=== PATIENT | female | born 1970 | race Caucasian/White ===

== ENCOUNTER 2016-06-30 07:23 | Inpatient (IN) | payer OTHER ==
[2016-06-07 15:17] VITALS: BMI 41.0
--- NOTE | 2016-06-07 15:52 | PAT Medication Instructions ---
Service Date Jun 07, 2016. Current Home Medication List Gabapentin (Gabapentin), 600 MG PO TID Medroxyprogesterone Acetate (Depo-Provera), 1 DOSE INJ [id number] Simvastatin (Zocor), 20 MG PO NOON Tramadol (Ultram), 50 MG PO Q4-6H Triamterene/Hctz (Dyazide 37.5MG/25MG), 1 TAB PO NOON Venlafaxine Hcl (Effexor), 75 MG PO NOON Medication Instructions For Your Scheduled Surgery - Hold the following medications the morning of surgery: Triamterene/Hctz (Dyazide 37.5MG/25MG), 1 TAB PO NOON - Take the following medications the morning of surgery with a sip of water OTHERWISE NOTHING TO EAT OR DRINK AFTER MIDNIGHT: Gabapentin (Gabapentin), 600 MG PO TID Simvastatin (Zocor), 20 MG PO NOON (time permitting) Venlafaxine Hcl (Effexor), 75 MG PO NOON (time permitting) Tramadol (Ultram), 50 MG PO Q4-6H (may take up to 4 hours prior to surgery if needed) - Take the following medications as scheduled the night before surgery: Gabapentin (Gabapentin), 600 MG PO TID Tramadol (Ultram), 50 MG PO Q4-6H If you have any questions please call us at [phone] (Anastasia Aranda PA-C ) or [phone] or [phone]
[2016-06-07 16:22] LABS: BASO % 0.4 %; BASO ABS # 0.03 K/uL (0-0.2); COMPLETE YES; EOS % 2.1 %; HEMATOCRIT 41.2 % (37-47); IG% 0.1 %; LYMPH % 36.5 %; LYMPH ABS # 2.99 K/uL (1.2-3.4); MEAN CELL VOLUME 84.4 fL (80-100); MEAN CORPUSCULAR HEMOGLOBIN 29.1 pg (25-34); MEAN CORPUSCULAR HGB CONC 34.5 g/dl (32-36); MEAN PLATELET VOLUME 9.3 fL (7.4-10.4); MONO % 10.1 %; NEUT % 50.8 %; PLATELET COUNT 261 K/uL (130-400); RED BLOOD COUNT 4.88 M/uL (4.2-5.4)
[2016-06-07 16:25] LABS: URINE APPEARANCE CLEAR (CLEAR); URINE BILIRUBIN NEG (NEG); URINE COLOR YELLOW; URINE NITRITE NEG (NEG); URINE SPECIFIC GRAVITY 1.008 (1.000-1.030); UROBILINOGEN NEG (NEG)
[2016-06-07 16:30] LABS: MANUAL MICROSCOPIC REQUIRED? NO; REVIEW REQ? NO
--- NOTE | 2016-06-07 16:39 | DIAGNOSTIC IMAGING REPORT ---
CHEST PREADMISSION(PA/LAT) CLINICAL HISTORY: PAT preoperative evaluation COMPARISON STUDY: No previous studies for comparison. FINDINGS: The bones soft tissues and hemidiaphragms are normal. The cardiomediastinal silhouette is normal. The lungs are clear. The pulmonary vasculature is normal. IMPRESSION: Negative chest. Electronically signed by: Raffi Montero M.D. 06/07/2016 4:38 PM
[2016-06-07 16:54] LABS: BUN/CREATININE RATIO 22.8 (10-20); CALCIUM 8.9 mg/dl (8.5-10.1); CREATININE 0.84 mg/dl (0.60-1.20); POTASSIUM 3.6 mmol/L (3.5-5.1)
[2016-06-30] VITALS (7 sets, daily range): BP systolic 116–150; BP diastolic 78–100; PULSE 76–96; TEMP 36.3–37.1; O2SAT 96–99; Ht 154.9 cm; Wt 101.4 kg
[~2016-06-30] VITALS: Ht 154.9 cm; Wt 101.4 kg
--- NOTE | 2016-06-30 07:17 | History & Physical Bridge Note ---
H&P Re-Evaluation Bridge Note: I have examined the patient, reviewed the History & Physical and in the interval since the performance of the History & Physical I have noted the following changes of clinical significance: No changes noted
[~2016-06-30 07:23] MED LIST: CEFAZOLIN 2000 MG/60 ML D5W IV SCH; DPPRI400 INJ; EFF75 PO; LACTATED RINGER'S 1000ML 1,000 ML IV SCH; NRN600 PO; SIMV20TA2 PO; TRAM-10 PO; TRIA37.5 PO
--- NOTE | 2016-06-30 07:37 | History and Physical ---
History & Physical Date & Time of Service: Jun 30, 2016 at 07:29 Chief Complaint: Spinal Stenosis,Right greater than left leg pain Primary Care Physician: No Doctor, Assigned History of Present Illness Source: patient 2 year history of lower back and leg pain. Failed conservative measures. Presents for surgery. Past Medical/Surgical History Arthritis, Depression, Migraines, HTN, Hypercholesterolemia Family History Hypertension FATHER MOTHER Social History Smoking Status: Current Every Day Smoker Immunizations History of Influenza Vaccine: Unknown History of Tetanus Vaccine?: Unknown History of Pneumococcal: Unknown History of Hepatitis B Vaccine: Unknown Allergies Coded Allergies: No Known Allergies (Unverified , 06/07/16) Home Medications Scheduled Gabapentin (Gabapentin), 600 MG PO TID Medroxyprogesterone Acetate (Depo-Provera), 1 DOSE INJ [id number] Simvastatin (Zocor), 20 MG PO NOON Tramadol (Ultram), 50 MG PO Q4-6H Triamterene/Hctz (Dyazide 37.5MG/25MG), 1 TAB PO NOON Venlafaxine Hcl (Effexor), 75 MG PO NOON Review of Systems Constitutional: No chills, No fatigue, No fever, No problem reported, No sweats , No weakness, No weight loss Eyes: No diplopia, No discharge, No eye pain, No problem reported, No redness, No worsening of vision ENT: No dental problems, No hearing loss, No nasal symptoms, No problem reported, No sore throat, No tinnitus, No trouble swallowing, No unusual epistaxis Respiratory: No cough, No dyspnea at rest, No dyspnea on exertion, No hemoptysis, No problem reported, No shortness of breath, No sputum, No wheezing Cardiovascular: No PND, No chest pain, No claudication, No edema, No orthopnea , No palpitations, No problem reported Abdomen: No GI bleeding, No constipation, No diarrhea, No nausea, No pain, No problem reported, No vomiting Musculoskeletal: No calf pain, No joint pain, No muscle pain, No problem reported, No swelling Genitourinary - Female: No dysmenorrhea, No dysuria, No hematuria, No menorrhagia, No metrorrhagia, No , No problem reported, No rash, No urinary frequency, No urinary incontinence, No urinary retention, No urinary urgency, No vaginal bleeding, No vaginal discharge, No vaginal itching, No vulvodynia Neurologic: + numbness/tingling, + weakness Psychiatric: No anhedonism, No anxiety, No depression symptoms, No insomnia, No problem reported, No substance abuse Endocrine: No excessive thirst, No excessive urination, No fatigue, No problem reported Hematologic / Lymphatic: No abnormal bleeding/bruising, No clotting problems, No night sweats, No problem reported, No swollen lymph nodes Integumentary: No bleeding, No color change, No itch, No new/changing skin lesions, No problem reported, No rash Allergic / Immunologic: No environmental allergies, No food allergies, No frequent infections, No hives, No pet sensitivities, No poor healing, No problem reported, No prolonged convalescence, No seasonal allergies Physical Exam General Appearance: WD/WN Head: normocephalic, atraumatic Eyes: normal inspection, PERRL ENT: normal ENT inspection Neck: supple, no adenopathy Respiratory/Chest: chest non-tender, lungs clear Cardiovascular: regular rate, rhythm Abdomen/GI: normal bowel sounds Back: + muscle spasm, + paravertebral tenderness Extremities/Musculoskelatal: normal inspection Neurologic/Psych: no motor/sensory deficits Skin: normal color Lymphatic: no adenopathy Diagnostics Diagnostic Radiology MRI multilevel spinal stenosis. Impression Assessment and Plan Multi level spinal stenosis, Presents for thoraco lumbar fusion. Advanced Directives Existing Advance Directive: No Existing Living Will: No Existing Power of Engineering Job Titles: No
[2016-06-30] MEDS ORDERED: DEXAMETHASONE SOD INJ 4 MG/ML VIAL ONE ×2 (07:49→10:21)
[2016-06-30] MEDS ORDERED: ONDANSETRON INJ 2 MG/ML 2 ML VIAL ONE (07:49)
[2016-06-30] MEDS ORDERED: HYDROmorphone INJ 2 MG/ML SYR/VIAL ONE (07:49)
[2016-06-30] MEDS ORDERED: ROCURONIUM BROMIDE 10 MG/ML 5 ML VIAL ONE ×3 (07:49→11:19)
[2016-06-30] MEDS ORDERED: LIDOCAINE HCL 2% 2 ML VIAL (20MG/ML) ONE (07:49)
[2016-06-30] MEDS ORDERED: FENTANYL CITRATE INJ 50 MCG/1 ML 2 ML VIAL ONE ×5 (07:49→14:32)
[2016-06-30] MEDS ORDERED: NEOSTIGMINE METHYLSULFATE 1 MG/ML 10ML VIAL ONE (07:49)
[2016-06-30] MEDS ORDERED: GLYCOPYRROLATE INJ 0.2 MG/ML VIAL ONE (07:49)
[2016-06-30] MEDS ORDERED: MIDAZOLAM HCL 1 MG/ML 2ML VIAL ONE (07:49)
[2016-06-30] MEDS ORDERED: PROPOFOL IV EMULSION 10 MG/ML 20 ML VIAL IV ONE ×2 (07:49→10:12)
[2016-06-30] MEDS ORDERED: ALBUMIN HUMAN 5% 12.5 GM/250 ML VIAL IV ONE (08:40)
[2016-06-30] MEDS ORDERED: EpHEDrine SULFATE INJ 50 MG/ML AMP IV PRN (09:30)
[2016-06-30] MEDS ORDERED: PROMETHAZINE HCL INJ 6.25 MG in SODIUM CHLORIDE 0.9% 50ML 50 ML IV PRN (09:30)
[2016-06-30] MEDS ORDERED: ONDANSETRON INJ 2 MG/ML 2 ML VIAL IV PRN ×2 (09:30→13:30)
[2016-06-30] MEDS ORDERED: HYDROmorphone INJ 1 MG/ML SYR IV PRN ×2 (09:30→13:30)
[2016-06-30] MEDS ORDERED: MEPERIDINE HCL 25 MG/ML CARP IV PRN (09:30)
[2016-06-30] MEDS ORDERED: FENTANYL CITRATE INJ 50 MCG/1 ML 2 ML VIAL IV PRN (09:30)
[2016-06-30] MEDS ORDERED: ATROPINE SULFATE 0.1 MG/ML 5ML SYR IV PRN (09:30)
[2016-06-30] MEDS ORDERED: PHENYLEPHRINE 100MCG/ML 5ML SYR ONE (09:58)
[2016-06-30] MEDS ORDERED: EpHEDrine SULFATE 50MG/5ML SYR ONE (10:04)
[2016-06-30] MEDS ORDERED: BUPIVACAINE/EPINEPHRINE 0.5% MPF 1:200,000 30 ML VIAL INJ ONE (12:13)
[2016-06-30] MEDS ORDERED: FLOSEAL HEMOSTATIC MATRIX 10ML TOP ONE ×2 (12:13→13:03)
[2016-06-30] MEDS ORDERED: BACITRACIN 50000 UNIT VIAL IR ONE (12:13)
[2016-06-30] MEDS ORDERED: SODIUM CHLORIDE 0.9% 1000ML 1,000 ML IV SCH (13:19)
--- NOTE | 2016-06-30 13:19 | [facility] Post Operative Brief Note ---
Immediate Operative Summary Operative Date Jun 30, 2016. Pre-Operative Diagnosis SPINAL STENOSIS Post-Operative Diagnosis SAME PREOP Procedure(s) Performed T10-S1 DECOMPRESSION AND INSTRUMENTED FUSION, APPLICATION INTERBODY CAGE, FIXATION ILIAC BOLT, USE OF INFUSE Surgeon DR. Amanda RUEDA Fluid Dynamicist Surgeon(s) Julia ANN PAC Estimated Blood Loss 1000 Findings stenosis/spondy Specimens NONE
[2016-06-30] MEDS ORDERED: ESMOLOL HCL 10 MG/ML 10 ML VIAL ONE (13:29)
[2016-06-30] MEDS ORDERED: METOCLOPRAMIDE HCL INJ 5 MG/ML 2 ML VIAL IV PRN (13:30)
[2016-06-30] MEDS ORDERED: hydrOXYzine HCL 25 MG TAB PO PRN (13:30)
[2016-06-30] MEDS ORDERED: FAMOTIDINE 20 MG TAB PO PRN (13:30)
[2016-06-30] MEDS ORDERED: SOD PHOSPHATE/SOD BIPHOSPHATE ENEMA 132 ML BTL PR PRN (13:30)
[2016-06-30] MEDS ORDERED: DO NOT ADMINISTER FLU VACCINE PRN ×3 (13:30)
[2016-06-30] MEDS ORDERED: PROMETHAZINE HCL INJ 12.5 MG in SODIUM CHLORIDE 0.9% 50ML 50 ML IV PRN (13:30)
[2016-06-30] MEDS ORDERED: NALOXONE HCL 0.4 MG/1 ML VIAL/CARP IV PRN ×2 (13:30)
[2016-06-30] MEDS ORDERED: ACETAMINOPHEN IV 100 ML IV PRN (13:30)
[2016-06-30] MEDS ORDERED: ALUMINUM/MAGNESIUM SUSP 30 ML UDC PO PRN (13:30)
[2016-06-30] MEDS ORDERED: LORAZEPAM INJ 0.5 MG in SYRINGE 0 ML IV PRN (13:30)
[2016-06-30] MEDS ORDERED: DO NOT ADMINISTER PNEUMOCOCCAL VACCINE PRN ×2 (13:30)
[2016-06-30] MEDS ORDERED: BISACODYL 10 MG SUPP PR PRN (13:30)
--- NOTE | 2016-06-30 13:47 | OPERATIVE REPORT ---
DATE OF OPERATION: 06/30/2016 PREOPERATIVE DIAGNOSES: Spinal stenosis, spondylolisthesis with degenerative scoliosis. POSTOPERATIVE DIAGNOSIS: Same. PROCEDURE PERFORMED: 1. Lumbar decompression and medial facetectomy and foraminotomies L2-3, L3-4, L4-5, L5-S1. 2. Posterior spinal fusion T10-S1. 3. Bilateral SI joint fusions. 4. Placement of posterior segmental instrumentation using Medicrea rods and screws T11-S1 with bilateral iliac bolts. 5. Interbody fusion L4-L5 and L5-S1. 6. Placement of PEEK cage L4-L5 and L5-S1 12 x 26 followed by a 12 x 22. 7. Placement of locally harvested morselized autograft posterior gutters. 8. Placement of Infuse collagen sponge combined with Mastergraft in posterior gutters and Hamida bone grafting in the interbody space. SURGEON: Dr. Nahun Luo. ASSISTANT ANALYST: Herson Johnson PA-C. Due to the complex nature of the procedure, the entire surgery was performed with the trust operations assistant of Herson Johnson PA-C the household assistant, under direct supervision, was involved in the actual performance of all aspects of the surgical procedure including hemostasis, tissue retraction and incision, instrument management, patient positioning, and wound closure. ANESTHESIA: General. DISPOSITION: The patient awakened and taken to PACU in stable condition. HISTORY OF PATIENT'S PROBLEMS: This is a 45-year-old female that presents with above-mentioned diagnosis. After failing an extensive course of nonoperative care, elected to undergo the above-mentioned procedure. Risks, benefits, pros, cons, and alternatives were outlined in detail preoperatively. OPERATION AND FINDINGS: PROCEDURE: The patient was met with preoperatively, case discussed and all questions were addressed. At that point the patient was taken back to operative suite and after undergoing successful general endotracheal intubation via department of anesthesia was placed in prone position on Damian table atop Fan frame. All bony prominences were well padded and the eyes were inspected to ensure there was no external pressure placed upon them. At this point, thoracolumbar spine was prepped and draped in normal sterile fashion. Sharp dissection with the assistance of Bovie cautery performed down to and exposing the lamina and transverse processes of T10, 11, 12, L1, 2, 3, 4, 5 and sacral ala bilaterally. From a caudal to cephalad fashion, complete laminectomy of L5, 4, 3 and 2 was performed addressing severe central and lateral recess disease. Pedicle screws were then placed in T11-12, L1, 2, 3, 4, 5, S1 levels as well as bilateral iliac bolts bilaterally. Through a transforaminal approach on the right, a complete discectomy of L5-S1 was performed, endplates curetted to subcortical bleeding bone and a 12 x 22 mm PEEK cage filled with Hamida bone grafting tapped into position. I then proceeded to 4-5 and again through a transforaminal approach on the right, a complete discectomy performed, endplates curetted to subcortical bleeding bone and a 12 x 26 mm PEEK cage filled with Hamida bone grafting tapped into position. Appropriate size rods were then contoured, locked into final position bilaterally including a crosslink. Transverse processes of T10, 11, 12, L1, 2, 3, 4, 5 and the sacral ala and bilateral sacroiliac joints were burred to subcortical bleeding bone. Infused collagen sponge combined with Mastergraft and locally harvested morcellized autograft was placed. A 7 flat ERICKSON drain inserted. Incision was closed with 1-0 Vicryl in the fascia, 2-0 Vicryl subcutaneously, 4-0 Monocryl for final skin closure. Steri-Strips and sterile dressing placed. The patient was awakened and taken to PACU in stable condition. I attest to the content of the Intraoperative Record and any orders documented therein. Any exceptio ns are noted below.
[2016-06-30] MEDS: GABAPENTIN 600 MG TAB PO SCH ×2 (14:00→20:40)
[2016-06-30] MEDS: HYDROmorphone HCL 0.5MG/ML 50 ML CASSETTE IV PRN ×3 (14:10→22:57)
--- NOTE | 2016-06-30 15:12 | Anesthesiology Progress Note ---
Anesthesia Post Op Note Date & Time Jun 30, 2016 at 15:11 Vital Signs Pain Intensity: 4 Vital Signs Past 12 Hours Date Time Temp Pulse Resp B/P Pulse Ox O2 Delivery O2 Flow Rate FiO2 06/30/16 15:00 85 16 136/76 96 Nasal Cannula 2 06/30/16 14:50 84 16 139/74 95 Nasal Cannula 2 06/30/16 14:40 92 15 110/66 97 Nasal Cannula 2 06/30/16 14:30 91 15 142/73 95 Nasal Cannula 2 06/30/16 14:20 88 6 135/92 99 Nasal Cannula 2 06/30/16 14:10 36.8 92 16 139/83 100 Nasal Cannula 2 06/30/16 07:57 36.8 76 18 150/100 96 Room Air Notes Mental Status: alert / awake / arousable, participated in evaluation Pt Amnestic to Procedure: Yes Nausea / Vomiting: adequately controlled Pain: adequately controlled Airway Patency, RR, SpO2: stable & adequate BP & HR: stable & adequate Hydration State: stable & adequate Anesthetic Complications: no major complications apparent Total EBL 1000. Starting Hb >14 and BP is stable in pacu. Patient awake and pain well controlled. She is okay to go to floor for routine hemoglobin check later. No transfusion indiciated.
--- NOTE | 2016-06-30 15:47 | DIAGNOSTIC IMAGING REPORT ---
INTRAOPERATIVE FLUOROSCOPIC IMAGES OF THE LUMBAR SPINE CLINICAL HISTORY: DECOMPRESSION/FUSION/INTERBODY COMPARISON STUDY: No previous studies for comparison. FLUOROSCOPY TIME: 59 seconds. FINDINGS: Exact localization of levels is possible on this exam. There are L4-L5 and L5-S1 discectomies with interbody spacer placement. There are bilateral pedicle screws at multiple levels with iliac bolts. Surgical drain is in place. IMPRESSION: Postoperative findings consistent with L4-L5 and L5-S1 discectomies with multilevel decompression and bilateral pedicle screw fusion. Electronically signed by: Gomez Guthrie M.D. 06/30/2016 3:46 PM Dictated Date/Time: 06/30/2016 2:58 PM
[2016-06-30] MEDS: LACTATED RINGER'S 1000ML 1,000 ML IV SCH ×2 (16:52→20:06)
[2016-06-30] MEDS: DEXAMETHASONE INJ 6 MG in SYRINGE 0 ML IV SCH (16:59)
[2016-06-30] MEDS: CEFAZOLIN IV 2,000 MG in DEXTROSE 5% 50ML 50 ML IV SCH (18:08)
[2016-06-30] MEDS: DOCUSATE SODIUM/SENNA 50/8.6MG TAB PO SCH (20:40)
[2016-07-01] MEDS: DEXAMETHASONE INJ 6 MG in SYRINGE 0 ML IV SCH ×2 (01:50→08:19)
[2016-07-01] MEDS: CEFAZOLIN IV 2,000 MG in DEXTROSE 5% 50ML 50 ML IV SCH (01:51)
[2016-07-01] MEDS: LACTATED RINGER'S 1000ML 1,000 ML IV SCH (01:58)
[2016-07-01 02:58] VITALS: BP 129/80; PULSE 86; TEMP 37.2; O2SAT 97
[2016-07-01] MEDS ORDERED: DC PCA SCH (06:00)
[2016-07-01] MEDS ORDERED: TRAMADOL HCL 50 MG TAB PO PRN (06:01)
[2016-07-01 06:26] LABS: BASO % 0.1 %; BASO ABS # 0.01 K/uL (0-0.2); COMPLETE YES; HEMATOCRIT 29.7 % (37-47); IG% 0.3 %; LYMPH % 7.6 %; LYMPH ABS # 1.09 K/uL (1.2-3.4); MEAN CELL VOLUME 84.1 fL (80-100); MEAN CORPUSCULAR HGB CONC 33.3 g/dl (32-36); MEAN PLATELET VOLUME 9.7 fL (7.4-10.4); MONO % 7.5 %; NEUT % 84.5 %; PLATELET COUNT 219 K/uL (130-400); RED BLOOD COUNT 3.53 M/uL (4.2-5.4)
[2016-07-01] MEDS ORDERED: NURSING DECISION MEDICATION ORDER SCH (06:45)
[2016-07-01 06:50] VITALS: BP 129/83; PULSE 81; TEMP 36.7; O2SAT 93
[2016-07-01 06:59] LABS: BUN/CREATININE RATIO 17.2 (10-20); CALCIUM 8.1 mg/dl (8.5-10.1); CREATININE 0.68 mg/dl (0.60-1.20); POTASSIUM 4.4 mmol/L (3.5-5.1)
[2016-07-01] MEDS: ACETAMINOPHEN 500 MG TAB PO PRN ×2 (07:05→18:52)
[2016-07-01] MEDS: TRIAMTERENE/HCTZ 37.5/25MG CAP PO SCH (08:20)
[2016-07-01] MEDS: VENLAFAXINE HCL XR 75 MG CAPXR PO SCH (08:20)
[2016-07-01] MEDS: SIMVASTATIN 20 MG TAB PO SCH (08:21)
[2016-07-01] MEDS: GABAPENTIN 600 MG TAB PO SCH ×3 (08:21→21:22)
[2016-07-01] MEDS: OXYCODONE HCL IR 5 MG TAB (IMMEDIATE RELEASE) PO PRN ×2 (08:21→16:19)
[2016-07-01] MEDS ORDERED: RXC5 PO (09:53)
--- NOTE | 2016-07-01 09:54 | Discharge Instructions ---
Discharge Instructions Admission Reason for Admission: Spinal Stenosis Discharge Discharge Diagnosis / Problem: stenosis Discharge Goals Goal(s): Improve function Activity Recommendations Activity Limitations: per Instructions/Follow-up section . Instructions / Follow-Up Instructions / Follow-Up ACTIVITY RECOMMENDATIONS: SELF CARE INSTRUCTIONS AFTER THORACIC/LUMBAR FUSIONS 1. You may walk to your tolerance. It is good exercise for your legs and back. Expect some back and intermittent leg aches and pains. 2. You may perform "counter-top" level activities (make a sandwich, mimi with a project, etc.). 3. No bending or lifting of more than 10 pounds or back twisting of any nature (roll like a log when turning in bed). 4. You may ride in a car for 20-30 minutes at a time. No driving until after your first visit with your doctor. 5. Frequent changes of position and restricting sitting to 30 minutes at a time will help limit the amount of back spasms and stiffness you may experience. 6. You may discontinue the use of ambulatory aids (cane, crutches, etc.) once your strength and confidence allow. 7. You may grinder set up operator surface the shower and let water strike your incision when you arrive home at least once daily. Do not take a tub bath, sit in a hot tub or go into a swimming pool until after your first recheck in the office. SPECIAL CARE INSTRUCTIONS: VERY IMPORTANT TO READ AND REVIEW A. Your surgical incision has been closed with a cosmetic suture under the skin that will dissolve in about 6 weeks. In 14 days, you can use a pair of clean scissors and cut the suture that is left outside of the skin at the ends of your incision. 1. The small skin tapes can be removed 7 days after surgery if they have not fallen off by that point. 2. You may keep the wound open to air as much as possible to promote healing after post-op day number 5 unless told otherwise by your doctor. 3. If you think the wound looks like it is becoming infected (redness or worsening drainage) and/or you are experiencing fever, chill or worsening back pain and muscle spasms, contact the office so that we may evaluate you as soon as possible. B. Complications are uncommon, but please contact us if you have any signs or symptoms of: 1. wound infection (fever higher than 102.5 degrees F, redness, separation of wound, drainage, or increasing pain from the incision) 2. blood clots in legs (pain, swelling, redness and warmth in legs) 3. urinary tract infection (fever higher than 102.5 degrees F, burning upon urination or increased frequency of urination) 4. nerve problems (inability to walk on your toes or heels, numbness, loss of bowel or bladder control) 5. any other symptoms that concern you C. Please call the office at if you have any concerns or questions about your operation or recovery. D. No smoking! Smoking drastically decreases the chance of a solid fusion. E. Do not take any anti-inflammatory medications (Indocin, Advil, Motrin, Aspirin, Naprosyn, etc.) as these may inhibit the chance of a solid fusion. Tylenol is okay to take for pain. MANAGING PAIN AFTER SPINAL SURGERY 1. Narcotic medication is intended for short-term use and will be provided for surgical pain. Surgical pain usually lasts for a period of 4-6 weeks. Narcotic medication includes Percocet, Vicodin, Darvocet, Tylenol #3 or Lortab. 2. Longer-term pain is more appropriately treated with non-narcotic medication such as Tylenol ES. 3. Muscle spasm is not appropriately treated with narcotics. Muscle relaxers such as Soma, Flexeril or Skelaxin can be used along with Tylenol ES. 4. Remember that we all live with some "aches and pains". This is not unusual or uncommon after an injury or as we get older. a. Back pain is expected and may include muscle spasms for 4 to 6 weeks after surgery. The pain should gradually improve. If the pain worsens for no apparent reason, please contact the office. b. Intermittent leg pain may also be experienced and should not be concerned about unless it worsens for no apparent reason. If so, please contact the office. 5. We will provide appropriate medication within the normal guidelines of their prescribed use. We will also be very cautious and aware of potential abuse and extended duration of patients' medication needs. a. Pain medications are for your comfort and to assist with sleep and rest so that the tissue can heal. They are not provided in order to return to normal activity and should not be used through the day. To do so or worsening pain at night can result from ongoing tissue damage and development of tolerance to the prescribed medicine. 6. Please allow 2-3 days to process refills. Prescriptions will not be mailed but must be picked up at the office. FOLLOW UP VISIT: Keep your scheduled follow-up appointment. Any questions, please call the office at . Current Hospital Diet Patient's current hospital diet: Regular Diet Discharge Diet Recommended Diet: Regular Diet Procedures Procedures Performed: T12-S1 DECOMPRESSION AND INSTRUMENTED FUSION, APPLICATION INTERBODY CAGE, L4-5, L5-S1, FIXATION ILIAC BOLT, USE OF INFUSE Pending Studies Studies pending at discharge: no Medical Emergencies . Who to Call and When: Medical Emergencies: If at any time you feel your situation is an emergency, please call 911 immediately. . Non-Emergent Contact Non-Emergency issues call your: Primary Care Provider . "Provider Documentation" section prepared by Nahun Luo. VTE Core Measure Inpt VTE Proph given/why not?: Rodrigo Rhodes, SCD's
--- NOTE | 2016-07-01 10:36 | PROGRESS NOTE ---
DATE: 07/01/2016 DATE: 07/01/2016. SUBJECTIVE: Postop day 1. Back pain controlled. Leg pain improved. Vital signs stable. T-max 37.2. ERICKSON drained 440 mL over the last shift. Hematocrit this a.m. is 29.7. OBJECTIVE: On exam she is sitting up at bedside. Has good strength to testing. Appears comfortable. ASSESSMENT: Status post thoracolumbar fusion. PLAN: At this time, we will continue physical therapy, occupational therapy, advance her bowel regimen. We will consult social services specialist for [facility] placement hopefully Sunday.
[2016-07-01 10:50] VITALS: BP 138/88; PULSE 91
[2016-07-01 15:12] VITALS: BP 151/94; PULSE 84; TEMP 37.8; O2SAT 99
[2016-07-01] MEDS: DOCUSATE SODIUM/SENNA 50/8.6MG TAB PO SCH (21:21)
[2016-07-01 22:52] VITALS: BP 134/74; PULSE 106; TEMP 37.4; O2SAT 97
[2016-07-02] MEDS: POLYETHYLENE (MIRALAX) 17 GM PACK PO SCH ×4 (05:54→23:06)
[2016-07-02] MEDS: MAGNESIUM HYDROXIDE SUSP 30 ML UDC PO PRN (05:54)
[2016-07-02] MEDS: OXYCODONE HCL IR 5 MG TAB (IMMEDIATE RELEASE) PO PRN ×3 (05:54→23:06)
[2016-07-02 07:37] VITALS: BP 131/75; PULSE 99; TEMP 37.1; O2SAT 96
[2016-07-02] MEDS: ACETAMINOPHEN 500 MG TAB PO PRN (07:40)
[2016-07-02] MEDS: TRIAMTERENE/HCTZ 37.5/25MG CAP PO SCH (09:09)
[2016-07-02] MEDS: GABAPENTIN 600 MG TAB PO SCH ×3 (09:10→20:43)
[2016-07-02] MEDS: VENLAFAXINE HCL XR 75 MG CAPXR PO SCH (09:10)
[2016-07-02] MEDS: SIMVASTATIN 20 MG TAB PO SCH (09:10)
--- NOTE | 2016-07-02 09:25 | PROGRESS NOTE ---
DATE: 07/02/2016 Postop day #2. Back pain controlled. Vital signs stable. T max 37.1. ERICKSON draining still significant at 200 mL. Hematocrit pending. On exam, she has good strength to testing, appears comfortable. ASSESSMENT: Status post lumbar decompression and fusion. PLAN: At this time, we will change her drain today. She is noting some modest headaches. Continue modest therapy today. Increase her activity tomorrow. Again, we are strongly considering rehab placement constraining the scope of the procedure and her requirements. She understands and agrees.
[2016-07-02 09:40] VITALS: BP 166/88
[2016-07-02 10:03] LABS: HEMATOCRIT 24.8 % (37-47)
[2016-07-02 14:56] VITALS: BP 138/85; PULSE 89; TEMP 37.5; O2SAT 98
[2016-07-02] MEDS: DOCUSATE SODIUM/SENNA 50/8.6MG TAB PO SCH (20:43)
[2016-07-02 22:50] VITALS: BP 143/86; PULSE 100; TEMP 37.5; O2SAT 95
[2016-07-03] MEDS: POLYETHYLENE (MIRALAX) 17 GM PACK PO SCH ×4 (05:09→23:28)
[2016-07-03] MEDS: OXYCODONE HCL IR 5 MG TAB (IMMEDIATE RELEASE) PO PRN ×5 (05:09→23:29)
[2016-07-03 06:31] VITALS: BP 137/87; PULSE 93; TEMP 37.5; O2SAT 97
[2016-07-03 06:41] LABS: HEMATOCRIT 24.7 % (37-47)
[2016-07-03] MEDS: SIMVASTATIN 20 MG TAB PO SCH (07:36)
[2016-07-03] MEDS: GABAPENTIN 600 MG TAB PO SCH ×3 (07:36→20:39)
[2016-07-03] MEDS: TRIAMTERENE/HCTZ 37.5/25MG CAP PO SCH (07:37)
[2016-07-03] MEDS: VENLAFAXINE HCL XR 75 MG CAPXR PO SCH (07:37)
--- NOTE | 2016-07-03 08:18 | Anesthesiology Progress Note ---
Anesthesia Post Op Note Date & Time Jul 03, 2016 at 08:17 Vital Signs Pain Intensity: 0.0 Vital Signs Past 12 Hours Date Time Temp Pulse Resp B/P Pulse Ox O2 Delivery O2 Flow Rate FiO2 07/03/16 07:56 Room Air 07/03/16 06:31 37.5 93 18 137/87 97 Room Air 07/02/16 23:28 Room Air 07/02/16 22:50 37.5 100 18 143/86 95 Room Air Notes Mental Status: alert / awake / arousable, participated in evaluation Pt Amnestic to Procedure: Yes Nausea / Vomiting: adequately controlled Pain: adequately controlled Airway Patency, RR, SpO2: stable & adequate BP & HR: stable & adequate Hydration State: stable & adequate Anesthetic Complications: no major complications apparent
--- NOTE | 2016-07-03 11:46 | PROGRESS NOTE ---
DATE: 07/03/2016 The patient is doing well. Not struggling with headaches, nausea or vomiting. She is ambulating well with physical therapy. She notes most of her discomfort with transfers in and out of bed and in and out of her chair. Again, leg pain markedly improved. Vital signs stable. T-max 37.5. No bowel movement as of yet. Hematocrit is 24.7. On exam, she has excellent strength to testing. She is progressing appropriately. We are hoping for transfer to [facility] tomorrow. She understands and agrees.
[2016-07-03] MEDS: LORAZEPAM 0.5 MG TAB PO PRN (14:22)
[2016-07-03 14:59] VITALS: BP 114/74; PULSE 98; TEMP 37.6; O2SAT 97
[2016-07-03] MEDS: DOCUSATE SODIUM/SENNA 50/8.6MG TAB PO SCH (20:39)
[2016-07-03 22:48] VITALS: BP 126/79; PULSE 97; TEMP 37; O2SAT 96
[2016-07-04] MEDS: LORAZEPAM 0.5 MG TAB PO PRN
[2016-07-04] MEDS: OXYCODONE HCL IR 5 MG TAB (IMMEDIATE RELEASE) PO PRN ×2 (06:07→15:02)
[2016-07-04] MEDS: POLYETHYLENE (MIRALAX) 17 GM PACK PO SCH ×2 (06:07→12:00)
[2016-07-04 06:56] VITALS: BP 135/84; PULSE 86; TEMP 37.4; O2SAT 96
[2016-07-04] MEDS: TRIAMTERENE/HCTZ 37.5/25MG CAP PO SCH (08:37)
[2016-07-04] MEDS: GABAPENTIN 600 MG TAB PO SCH ×2 (08:37→13:24)
[2016-07-04] MEDS: VENLAFAXINE HCL XR 75 MG CAPXR PO SCH (08:37)
[2016-07-04] MEDS: SIMVASTATIN 20 MG TAB PO SCH (08:39)
[2016-07-04] MEDS: MAGNESIUM HYDROXIDE SUSP 30 ML UDC PO PRN (09:11)
[2016-07-04 09:16] VITALS: BP 135/84; PULSE 86; TEMP 37.4; O2SAT 96
--- NOTE | 2016-07-04 15:59 | DISCHARGE SUMMARY ---
DATE OF DISCHARGE: 07/04/2016. PRINCIPAL DIAGNOSIS: Spinal stenosis. HOSPITAL COURSE FOLLOWS: On 06/30/2016 the patient underwent thoracolumbar decompression and fusion, tolerated this well and taken to the orthopedic floor postoperatively. Postop day #1, she was up and ambulatory, progressed to postop day #2. On postop day 3, she was stable. Leg pain improved. Pain controlled. Subsequently on 07/04/2016 she was discharged to [facility]. Discharge orders and instructions can be found on the chart for further review.
== END 2016-07-04 16:17 | DRG 460 ==
LOC: ENRESERVDT → ENRESERVTM → C.ACU 07:23 → C.3E 08:30
PROVIDERS: ADMIT Orthopaedic Surgery Orthopaedic Surgery of the Spine; ATTEND Orthopaedic Surgery Orthopaedic Surgery of the Spine
PROC: 0SG30A1 (ICD-10-PCS; 2016-06-30)
PROC: 0RG60A1 (ICD-10-PCS; 2016-06-30)
PROC: 0SG804Z Fusion of Left Sacroiliac Joint with Internal Fixation Device, Open Approach (ICD-10-PCS; 2016-06-30)
PROC: 0SG704Z Fusion of Right Sacroiliac Joint with Internal Fixation Device, Open Approach (ICD-10-PCS; 2016-06-30)
PROC: 0SG00A1 (ICD-10-PCS; principal; 2016-06-30 09:05)
DX: M48.07 Spinal stenosis, lumbosacral region (principal); I10 Essential (primary) hypertension; E78.00 Pure hypercholesterolemia, unspecified; F17.210 Nicotine dependence, cigarettes, uncomplicated; G43.909 Migraine, unspecified, not intractable, without status migrainosus; F32.9 Major depressive disorder, single episode, unspecified; M19.90 Unspecified osteoarthritis, unspecified site; Z82.49 Family history of ischemic heart disease and other diseases of the circulatory system; M48.06 Spinal stenosis, lumbar region; M41.9 Scoliosis, unspecified